=== PATIENT | female | born 1985 | race Caucasian/White ===

== ENCOUNTER 2025-02-28 20:55 | Emergency (ER) | payer MEDICAID ==
[~2025-02-28] VITALS: Ht 157.5 cm; Wt 57.6 kg
[2025-02-28 20:58] VITALS: TEMP 99.1
--- NOTE | 2025-02-28 21:24 | ERN ---
ED Note History of Present Illness Stated Complaint: CONSTIPATION, ABD PAIN Chief Complaint: Constipation Time Seen by MD: 20:57 Dictation: This is a 39-year-old female who presented to the emergency room with a severe abdominal cramping after she took 3 Dulcolax tablets for constipation. Patient reported that she has been a drug addict for a long time since her 20s and has been sober on Suboxone. She has taken Dulcolax in the past but the cramping so were so severe that she was tearful. She also reported severe nausea and vomitings. No hematemesis or melena no diarrhea alternating with constipation. She denied any history of adrenal insufficiency, diabetes or insulin resistance Temperature 99.1 pulse 70 respirations 16 blood pressure 113/51 with a pulse oximetry of 100% on room air Patient is from [place] living in the [place] for the past 4 years. Not established herself with a any primary care physician yet. She stated that she was diagnosed with an autoimmune deficiency for which she has to get iron infusions periodically and a vitamin pack. Allergies: Coded Allergies: amoxicillin (Unverified Allergy, Unknown, 02/28/25) Home Meds Active Scripts Sennosides/Docusate Sodium (Senna Plus 8.6-50 mg Tablet) 8.6 Mg-50 Mg Tablet, 1 TAB PO DAILY for constipation for 20 Days, #20 TAB 0 Refills Prov:ELIECER FLOWERS MD 02/28/25 Past Medical History Past Medical History: Other Additional Past Medical Hx: AUTO IMMUNE DEFICIENCY GETS IRON INFUSIONS Surgical History: Tonsillectomy, Other Surgical History Other: WISDOM TEETH EXTRACTED Family History: Negative Social History: Smokers (Vapes nicotine), Drugs (Opioid addiction in remission) RN Note Reviewed/Agreed w/PFSH: Yes Review of System Dictation Constitutional: Negative for fever,chills, and weight loss Eyes: Negative for injury, pain,redness, and discharge ENT: Negative for injury,pain or swelling Cardiovascular: Negative for chest pain, palpitations, and edema Respiratory: Negative for shortness of breath, cough, and wheezing, Abdomen/GI: Positive for abdominal pain, severe cramping, nausea, vomiting,and constipation Back: Negative for injury and pain : Negative for injury, bleeding and discharge MS/Extremity: Negative for injury and deformity Skin: Negative for rash, and discoloration Neuro: Negative for headache, weakness, numbness, tingling, and seizure Psych: Negative for suicide ideation, homicidal ideation, and hallucinations Initial Vital Sign VS Vital Signs Date Time Temp Pulse Resp B/P (MAP) Pulse Ox O2 Delivery O2 Flow Rate FiO2 02/28/25 20:58 99.1 70 16 113/51 100 Room Air 0 02/28/25 22:12 21 Physical Exam Dictation General: awake, alert, NAD thin, severe temporal wasting Head/Face: Normocephalic, atraumatic Eyes: PERRL, EOMI, vision at baseline ENT: oral cavity clear, TMs clear, no signs of infection Neck: Trachea midline, supple, no nuchal rigidity Cardiovascular: RRR, normal S1/S2, No MRGs, no JVD Respiratory: CTAB, no respiratory distress, No rales or wheezes Abdomen: Soft, non-tender, non-distended, normal bowel sounds, no guarding or rebound. Skin: Warm, dry, normal turgor, no rash MS/Extremity: Pulses equal, no cyanosis, neurovascular intact, FROM Neuro: COAx4, GCS 15, strength 5/5, CN 2-12 intact, normal cerebellar exam, normal gait, Psych: Normal behavior, mood, and affect normal Extremities-trace edema without any palpable cords, Homans sign is negative Results (Laboratory/Radiology) Laboratory/Radiology Laboratory Tests Test 02/28/25 21:24 02/28/25 21:38 02/28/25 22:27 Whole Blood Glucose 89 MG/DL (70-110) White Blood Count 13.5 K/uL (4.8-10.8) H Red Blood Count 4.47 MIL/uL (4.00-5.50) Hemoglobin 13.2 g/dL (12.0-16.0) Hematocrit 40.5 % (36-48) Mean Corpuscular Volume 90.6 fL (79-99) Mean Corpuscular Hemoglobin 29.5 pg (27.0-33.0) Mean Corpuscular Hemoglobin Concent 32.6 g/dL (32.0-36.0) Red Cell Distribution Width 13.2 % (11.0-15.5) Platelet Count 151 K/uL (130-400) Mean Platelet Volume 11.9 fL (7.5-10.5) H Immature Granulocyte % (Auto) 0.5 % (0-1) Neutrophils (%) (Auto) 80.2 % (40.0-77.0) H Lymphocytes (%) (Auto) 11.1 % (21.0-51.0) L Monocytes (%) (Auto) 6.4 % (3.0-13.0) Eosinophils (%) (Auto) 1.5 % (0.0-8.0) Basophils (%) (Auto) 0.3 % (0.0-5.0) Neutrophils # (Auto) 10.8 K/uL (1.8-7.7) H Lymphocytes # (Auto) 1.5 K/uL (1.0-4.8) Monocytes # (Auto) 0.9 K/uL (0.1-1.0) Eosinophils # (Auto) 0.20 K/uL (0.00-0.70) Basophils # (Auto) 0.04 K/uL (0.00-0.20) Absolute Immature Granulocyte (auto 0.07 K/uL (0-1) Nucleated Red Blood Cells 0.0 % (0.0-0.19) Sodium Level 141 mmol/L (136-145) Potassium Level 3.6 mmol/L (3.5-5.1) Chloride Level 103 mmol/L (101-111) Carbon Dioxide Level 29 mmol/L (21-32) Blood Urea Nitrogen 10 mg/dL (7-18) Creatinine 0.6 mg/dL (0.5-1.0) Glomerular Filtration Rate Calc 117 mL/min (>90) Random Glucose 76 mg/dL (70-105) Total Calcium 9.0 mg/dL (8.5-10.1) Lipase 28 U/L (16-77) Thyroid Stimulating Hormone (TSH) 0.59 uIU/mL (0.36-3.74) Serum Test, Qualitative NEGATIVE (NEGATIVE) Urine Color LIGHT-YELLOW (YELLOW) Urine Appearance CLEAR (CLEAR) Urine pH 6.0 (5.0-8.0) Urine Specific Allen 1.010 (1.001-1.031) Urine Protein NEGATIVE mg/dL (NEGATIVE) Urine Glucose (UA) >=1000 mg/dL (NEGATIVE) H Urine Ketones NEGATIVE mg/dL (NEGATIVE) Urine Occult Blood NEGATIVE (NEGATIVE) Urine Nitrate NEGATIVE (NEGATIVE) Urine Bilirubin NEGATIVE mg/dL (NEGATIVE) Urine Urobilinogen 0.2 mg/dL (0.2-1.0) Urine Leukocyte Esterase NEGATIVE Kristi/uL Labs Reviewed?: Yes X-RAY Comment: REASON: Constipation Abdominal cramps ORDERING PHYSICIAN: ELIECER FLOWERS MD PROCEDURE: ABD 1VW - ABD 1VW EXAM: CR Abdomen, 1 View. CLINICAL HISTORY: Constipation Abdominal cramps COMPARISON: None provided. FINDINGS: BOWEL: The bowel gas pattern is within normal limits. PERITONEUM/SOFT TISSUES: No free air evident. No pathologic appearing calcification. BONES: No aggressive appearing osseous lesion seen. IMPRESSION: The bowel gas pattern is within normal limits. /[place] DICTATED BY: CHYNA DISLA MD DATE: 02/28/252355 ELECTRONICALLY SIGNED BY: CHYNA DISLA MD DATE: 02/28/252355 ED Course ED Course Orders Procedure Category Date Status Time Cbc With Differential LAB 02/28/25 Complete 21:14 Basic Metabolic Panel LAB 02/28/25 Complete 21:14 Lipase LAB 02/28/25 Complete 21:14 Urinalysis Profile LAB 02/28/25 Complete 21:14 Testing, LAB 02/28/25 Complete Serum Hcg 21:14 Thyroid Stimulating LAB 02/28/25 Complete Hormone 21:14 Abd 1vw RAD 02/28/25 Resulted 21:26 Ketorolac PHA 02/28/25 Complete Tromethamine 30mg/Ml 22:00 Ketorolac PHA 02/28/25 Complete Tromethamine 30mg/Ml 22:02 Ondansetron 4mg Inj PHA 02/28/25 Complete (Zofran 4mg Inj) 22:30 Current Medications Medications (Trade) Dose Ordered Sig/Taylor Route PRN Reason Start Time Stop Time Status Last Admin Dose Admin Ketorolac Tromethamine (toRADol) 30 mg ONCE ONCE IVP 02/28/25 22:00 02/28/25 22:01 DC 02/28/25 22:03 Ketorolac Tromethamine (toRADol) 30 mg STK-MED ONCE .ROUTE 02/28/25 22:02 02/28/25 22:02 DC Ondansetron HCl (zoFRAN 4MG INJ) 4 mg ONCE ONCE IVP 02/28/25 22:30 02/28/25 22:31 DC 02/28/25 23:18 Vital Signs Date Time Temp Pulse Resp B/P (MAP) Pulse Ox O2 Delivery O2 Flow Rate FiO2 03/01/25 01:09 50 18 101/50 97 Room Air* 0 21 02/28/25 22:12 71 16 111/56 99 Room Air* 0 21 02/28/25 20:58 99.1 70 16 113/51 100 Room Air 0 We will perform diagnostic labs, advanced imaging and administer medications according to the patient's complaint. Once the results are available, will review and personally interpreted the labs to rule out any acute life- threatening emergency the trach require immediate intervention and treatment. I will then re-evaluate the patient after treatment and diagnostic exams have return to determine whether the patient requires any further testing, can safely be discharged home or need further admission to hospital for additional treatment and evaluation. Medical Decision Making MDM Differential diagnosis: Constipation, small-bowel obstructions, diverticulitis, diverticulosis, appendicitis This is a 39-year-old female who presented to the emergency room with a severe abdominal cramping after she took 3 Dulcolax tablets for constipation. Patient reported that she has been a drug addict for a long time since her 20s and has been sober on Suboxone. She has taken Dulcolax in the past but the cramping so were so severe that she was tearful. She also reported severe nausea and vomitings. No hematemesis or melena no diarrhea alternating with constipation Temperature 99.1 pulse 70 respirations 16 blood pressure 113/51 with a pulse oximetry of 100% on room air Patient is from [place] living in the [place] for the past 4 years. Not established herself with a any primary care physician yet. She stated that she was diagnosed with an autoimmune deficiency for which she has to get iron infusions periodically and a vitamin pack. KUB shows nonspecific bowel gas and stool. Patient was given pain medication and she felt significantly better and I recommended a bowel regimen and counseled her on getting established with a physician. I also explained to her that hypoglycemia could be related to Suboxone at higher doses Rationale: Tests considered and ordered secondary to shared decision making include: Previous outside records reviewed: Old ER visits. Risk of complication and/or morbidity or mortality of patient management: None Medications-Per medication reconciliation Need for hospitalization: Patient does not meet criteria for hospitalization. Need for emergency major/minor surgery: No There are no social concerns with this patient. Prescription drug management Prescriptions will include symptomatic care Patient's prior external medical records from other ER visits were reviewed by me as indicated. Prior testing and results from previous visits were reviewed. Prior tests were taken into account with medical decision making and resource utilization, independent historian/historians were used to obtain complete medical history. I independently interpreted the test that were performed, results were reviewed by me and considered findings on radiology if ordered. Medical management and examination interpretation discussions were had by me with other qualified healthcare professionals as indicated for the patient's care. Problem List Problem List: (1) Constipation due to opioid therapy (2) History of hypoglycemia (3) Abdominal cramping DX & DISP Disposition: Discharge Departure Impression: Primary Impression: Abdominal cramping Additional Impressions: Constipation due to opioid therapy, History of hypoglycemia Condition: Stable Scripts Sennosides/Docusate Sodium (Senna Plus 8.6-50 mg Tablet) 8.6 Mg-50 Mg Tablet 1 TAB PO DAILY for constipation for 20 Days, #20 TAB 0 Refills Prov: ELIECER FLOWERS MD 02/28/25 Additional Instructions: Patient and the caregiver have been informed of all the diagnostic tests and the imaging conducted during the today's visit to the emergency room and has verbalized understanding of the results I have personally reviewed and interpreted all diagnostic exams performed here in the ER today as well as the vital signs documented by the nursing staff. The patient is now being discharged to home and should follow up with the primary care physician or the specialist as directed by the ER staff. Diet recommendations smaller meals at least 4-6 times to avoid hypoglycemia Patient needs to be on bowel regimen regularly-prescription sent ELIECER FLOWERS MD Feb 28, 2025 21:24
--- NOTE | 2025-02-28 21:55 | NUR ---
Leighton ibanez in [facility] - 02/28/25 at [address]EL PATIENT [address] VIA STRETCHER
[2025-02-28 21:59] LABS: IMMATURE GRANULOCYTE ABSOLUTE 0.07 K/uL (0-1); NUCLEATED RED BLOOD CELLS 0.0 % (0.0-0.19); PLATELET COUNT (AUTO) 151 K/uL (130-400); RED BLOOD CELL COUNT(AUTO) 4.47 MIL/uL (4.00-5.50); RED CELL DISTRIBUTION WIDTH 13.2 % (11.0-15.5); WHITE BLOOD COUNT (AUTO) 13.5 K/uL (4.8-10.8)
[2025-02-28] MEDS ORDERED: SENN-316 PO (22:01)
[2025-02-28 22:08] LABS: CREATININE 0.6 mg/dL (0.5-1.0); GLOMERULAR FILTR. RATE CALC 117.0 mL/min (>90); GLUCOSE,RANDOM 76.0 mg/dL (70-105); SODIUM SERUM 141.0 mmol/L (136-145); UREA NITROGEN, BLOOD 10.0 mg/dL (7-18)
--- NOTE | 2025-02-28 22:57 | HMCIMG ---
EXAM: CR Abdomen, 1 View. CLINICAL HISTORY: Constipation Abdominal cramps COMPARISON: None provided. FINDINGS: BOWEL: The bowel gas pattern is within normal limits. PERITONEUM/SOFT TISSUES: No free air evident. No pathologic appearing calcification. BONES: No aggressive appearing osseous lesion seen. IMPRESSION: The bowel gas pattern is within normal limits. /[place]
[2025-02-28 23:22] LABS: APPEARANCE,URINE CLEAR (CLEAR); GLUCOSE, URINE (UA) >=1000 mg/dL (NEGATIVE); LEUKOCYTE ESTERASE ,URINE NEGATIVE Leu/uL (NEGATIVE); NITRATE,URINE NEGATIVE (NEGATIVE); OCCULT BLOOD,URINE NEGATIVE (NEGATIVE)
[2025-02-28 23:23] LABS: ADD UA MICROSCOPIC NO
[2025-03-01 01:09] VITALS: BP 101/50; PULSE 50; RESP 18; O2SAT 97
== END 2025-03-01 01:14 | disposition home or self-care (01) ==
LOC: EDH 20:55
DX: K59.03 Drug induced constipation (principal); T40.2X5A Adverse effect of other opioids, initial encounter; F11.21 Opioid dependence, in remission; F17.290 Nicotine dependence, other tobacco product, uncomplicated; Z88.0 Allergy status to penicillin; Z90.89 Acquired absence of other organs; Y92.89 Other specified places as the place of occurrence of the external cause
CPT/HCPCS: 99284; 96374; 96375; 84443; 80048; 84703; 83690; 85025; 82948; 81003; 36415; 74018; J1885; J2405